=== PATIENT | female | born 1980 | race Caucasian/White ===

== ENCOUNTER → 2017-06-10 | Outpatient (CLI) | payer OTHER | LOC: ULTRA 10:01 | DX: R10.11 Right upper quadrant pain (principal) ==

== ENCOUNTER → 2017-06-13 | Outpatient (CLI) | payer OTHER | LOC: RAD 07:30 | DX: R10.11 Right upper quadrant pain (principal) ==

== ENCOUNTER 2018-08-19 19:33 | Emergency (ER) | payer OTHER ==
[~2018-08-19] VITALS: Ht 160 cm; Wt 66.2 kg
[2018-08-19] MEDS ORDERED: VENTOLIN HFA 1818 GM INH (20:58)
[2018-08-19] MEDS ORDERED: PROMETH-CODEIN 65 ML PO (20:58)
[2018-08-19] MEDS ORDERED: PREDNISONE 20 M20 M1 PO (20:58)
[2018-08-19 21:01] VITALS: BP 129/78
== END 2018-08-19 21:05 | disposition home or self-care (01) ==
LOC: ER 19:33
DX: J40 Bronchitis, not specified as acute or chronic (principal); H69.92 Unspecified Eustachian tube disorder, left ear

== ENCOUNTER → 2018-12-30 | Outpatient (CLI) | payer OTHER ==
[~2018-12-30] MED LIST: PREDNISONE 20 M20 M1 PO; PROMETH-CODEIN 65 ML PO; VENTOLIN HFA 1818 GM INH
== END ==
LOC: ULTRA 13:20
DX: R60.0 Localized edema (principal)

== ENCOUNTER → 2019-04-02 | Outpatient (CLI) | payer OTHER | LOC: ULTRA 10:52 | DX: N92.6 Irregular menstruation, unspecified (principal) ==

== ENCOUNTER 2019-07-11 10:08 | Emergency (ER) | payer OTHER ==
[~2019-07-11] VITALS: Ht 160 cm; Wt 67.6 kg
[2019-07-11 11:06] LABS: BASOPHILS 0.6 % (0.0-2.0); EOSINOPHILS 0.7 % (0.0-3.0); HEMOGLOBIN 10.9 gm/dL (12.0-15.0); LYMPHOCYTES 8.1 % (24.0-44.0); MCH 22.2 pg (26.0-34.0); MCHC 31.1 g/dL (28.0-37.0); MCV 71.3 fL (80.0-100.0); MONOCYTES 9.7 % (1.0-8.0); PLATELET COUNT 277 thou/uL (150-400); POLYS 80.9 % (36.0-66.0); RBC 4.92 mil/uL (4.20-5.00); RDW 17.9 % (10.5-14.5); WBC 7.4 thou/uL (4.0-11.0)
[2019-07-11 11:11] LABS: CALCIUM 8.7 mg/dL (8.5-10.1); CREATININE 0.8 mg/dL (0.6-1.0); POTASSIUM 3.6 mmol/L (3.5-5.1)
[2019-07-11] MEDS ORDERED: TAMIFLU75 MG PO (11:55)
[2019-07-11] MEDS ORDERED: PROMETH-CODEIN 65 ML PO (11:55)
[2019-07-11 12:21] LABS: ANISOCYTOSIS 2+; PLATELET ESTIMATE NORMAL
[2019-07-11 12:22] LABS: HYPOCHROMASIA 2+; MICROCYTES 1+
[2019-07-11 12:40] VITALS: BP 122/78
== END 2019-07-11 14:28 | disposition home or self-care (01) ==
LOC: ER 10:08
PROVIDERS: Emergency Medicine
DX: J11.1 Influenza due to unidentified influenza virus with other respiratory manifestations (principal)

== ENCOUNTER → 2020-05-11 | Outpatient (CLI) | payer OTHER ==
[~2020-05-11] MED LIST changes: +TAMIFLU75 MG PO
== END ==
LOC: RAD 10:41
PROVIDERS: ATTEND Family Medicine
DX: Z12.31 Encounter for screening mammogram for malignant neoplasm of breast (principal)

== ENCOUNTER → 2020-11-09 | Outpatient (CLI) | payer OTHER | LOC: ULTRA 11:15 | PROVIDERS: ATTEND Family Medicine | DX: K76.0 Fatty (change of) liver, not elsewhere classified (principal) ==

== ENCOUNTER → 2021-01-02 | Outpatient (CLI) | payer OTHER | LOC: NUC 10:05 | PROVIDERS: ATTEND Family Medicine | DX: K76.0 Fatty (change of) liver, not elsewhere classified (principal); R10.10 Upper abdominal pain, unspecified ==

== ENCOUNTER 2021-04-19 04:09 | Emergency (ER) | payer OTHER ==
[~2021-04-19] VITALS: Ht 162.6 cm; Wt 65.8 kg
[2021-04-19] MEDS ORDERED: CEFUROXIME500 MG PO (04:23)
[2021-04-19 05:19] LABS: URINE BILIRUBIN NEGATIVE (Negative); URINE BLOOD TRACE (Negative); URINE CLARITY CLEAR; URINE COLOR YELLOW; URINE GLUCOSE-RANDOM* NEGATIVE (Negative); URINE KETONES NEGATIVE (Negative); URINE LEUKOCYTES-REFLEX NEGATIVE (Negative); URINE NITRITE-REFLEX NEGATIVE (Negative); URINE PROTEIN (DIPSTICK) NEGATIVE (Negative); URINE SPECIFIC GRAVITY 1.025 (1.005-1.035); URINE UROBILINOGEN 0.2 E.U./dl (0.2-1.0)
[2021-04-19 06:35] LABS: ABSOLUTE NEUTROPHILS 3.9 thou/uL (1.4-8.2); BASOPHILS 0.7 % (0.0-2.0); EOSINOPHILS 4.2 % (0.0-3.0); HEMATOCRIT 32.1 % (37.0-47.0); HEMOGLOBIN 10.1 gm/dL (12.0-15.0); LYMPHOCYTES 24.4 % (24.0-44.0); MCH 21.8 pg (26.0-34.0); MCHC 31.6 g/dL (28.0-37.0); MCV 68.8 fL (80.0-100.0); PLATELET COUNT 311 thou/uL (150-400); POLYS 64.7 % (36.0-66.0); RBC 4.66 mil/uL (4.20-5.00); RDW 19.8 % (10.5-14.5)
[2021-04-19 06:48] LABS: CALCIUM 8.3 mg/dL (8.5-10.1); CREATININE 0.8 mg/dL (0.6-1.0); POTASSIUM 3.4 mmol/L (3.5-5.1)
[2021-04-19 07:00] LABS: ALBUMIN 3.2 g/dL (3.4-5.0); TOTAL BILIRUBIN 0.3 mg/dL (0.2-1.0); TOTAL PROTEIN 6.9 g/dL (6.4-8.2)
[2021-04-19 09:24] VITALS: BP 110/65
== END 2021-04-19 15:20 | disposition home or self-care (01) ==
LOC: ER 04:09
PROVIDERS: Emergency Medicine
DX: R10.31 Right lower quadrant pain (principal); Z20.822 Contact with and (suspected) exposure to COVID-19; Z79.51 Long term (current) use of inhaled steroids; Z79.899 Other long term (current) drug therapy